=== PATIENT | female | born 1970 | race Caucasian/White ===

== ENCOUNTER 2016-03-23 18:57 | Emergency (ER) | payer OTHER ==
[2016-03-23 19:03] VITALS: BP 129/81; PULSE 83; TEMP 98.7; BMI 29.2
--- NOTE | 2016-03-23 19:41 | PDOC ---
History of Present Illness - General Chief Complaint: Cold Symptoms Stated Complaint: ASTHMA Time Seen by Provider: 03/23/16 19:35 History Source: Patient Exam Limitations: No Limitations - History of Present Illness Initial Comments: 03/23/16 19:58 Patient complaints of cough persistent after episode of influenza where she was treated 2 weeks ago. suffers from intermittent asthma that is mild however since this illness has persistent coughing with some phlegm production. ran out of her inhaler and was concerned her asthma was getting worse. Denies fever, denies any runny nose earache or sore throat pain. has some intermittent phlegm production that is clear to white. Timing/Duration: reports: changing over time, getting worse Severity: reports: moderate Associated Symptoms: reports: denies symptoms Past History - Travel Traveled outside of the country in the last 30 days: No Close contact w/someone who was outside of country & ill: No - Past Medical History Allergies/Adverse Reactions: Allergies Allergy/AdvReac Type Severity Reaction Status Date / Time No Known Drug Allergies Allergy Verified 03/23/16 19:01 Home Medications: Ambulatory Orders Omeprazole [Prilosec] 40 mg PO PRN 05/18/15 Albuterol Sulfate Inhaler - [Ventolin HFA Inhaler -] 1 - 2 inh PO Q4H PRN #1 inhaler 12/04/15 Ibuprofen [Motrin -] 600 mg PO QID PRN #28 tablet 12/04/15 Albuterol Sulfate [Proventil HFA Inhaler -] 1 - 2 inh PO QID #1 inhaler Prednisone [Deltasone -] 20 mg PO BID #8 tablet 03/23/16 Anemia: No Asthma: Yes Cancer: No Cardiac Disorders: No CVA: No COPD: No CHF: No Dementia: No Diabetes: No GI Disorders: Yes (gastritis) Disorders: No HTN: No Hypercholesterolemia: No Liver Disease: No Suicide Attempt (Hx): No Seizures: No Thyroid Disease: No - Surgical History Abdominal Surgery: Yes (HERNIA REPAIR) Appendectomy: No Cardiac Surgery: No Cholecystectomy: Yes Lung Surgery: No Neurologic Surgery: No Orthopedic Surgery: No - Reproductive History (#): 2 Para: 0 Cervical CA: No Dysfunctional Uterine Bleeding: No Ectopic : No Endometrial CA: No Polycystic Ovaries: No Spontaneous : 1 - Immunization History Immunization Up to Date: Yes - Psycho/Social/Smoking Cessation Hx Anxiety: No Suicidal Ideation: No Smoking Status: No Smoking History: Never smoked Have you smoked in the past 12 months: No Number of Cigarettes Smoked Daily: 0 Information on smoking cessation initiated: No Hx Alcohol Use: No Drug/Substance Use Hx: No Substance Use Type: None Hx Substance Use Treatment: No Review of Systems - Review of Systems Able to Perform ROS?: Yes Is the patient limited [place] proficient: Yes Constitutional: Yes: Symptoms Reported, See HPI, Chills, Fever, Malaise Respiratory: Yes: Symptoms reported, See HPI, Cough. No: Wheezing Musculoskeletal: Yes: Symptoms Reported All Other Systems: Reviewed and Negative *Physical Exam - Vital Signs Last Vital Signs Temp Pulse Resp BP Pulse Ox 98.7 F 83 20 129/81 100 03/23/16 19:01 03/23/16 19:01 03/23/16 19:01 03/23/16 19:01 03/23/16 19:01 - Physical Exam General Appearance: Yes: Nourished, Appropriately Dressed, Apparent Distress, Mild Distress HEENT: positive: EOMI, JUSTIN, TMs Normal, Pharynx Normal, Nasal Congestion Neck: positive: Supple. negative: Tender, Lymphadenopathy (R), Lymphadenopathy (L) Respiratory/Chest: positive: Lungs Clear, Normal Breath Sounds (tight inspiratory and expiratory breath sounds, but aeration throughout.) Gastrointestinal/Abdominal: positive: Normal Bowel Sounds, Soft. 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 Patient states is ready for discharge, will prescribe additional Proventil pump and 40 mg 4 days. *DC/Admit/Observation/Transfer Diagnosis at time of Disposition: Hyperactive airway disease Qualifiers: Asthma severity: mild intermittent Asthma complication type: with acute exacerbation Qualified Code(s): J45.21 - Mild intermittent asthma with (acute) exacerbation - Discharge Dispostion Disposition: HOME Condition at time of disposition: Stable Admit: No - Prescriptions Prescriptions: Prednisone [Deltasone -] 20 mg PO BID #8 tablet Albuterol Sulfate [Proventil HFA Inhaler -] 1 - 2 inh PO QID #1 inhaler - Referrals Referrals: Alexey Botello MD [Primary Care Provider] - - Patient Instructions Printed Discharge Instructions: DI for Viral Upper Respiratory Infection -- Adult Additional Instructions: Rest, drink lots of fluids: Teas, water, soups, Pedialyte Saltwater gargles Steamy showers/seem to face break up mucus Avoid contact with others until fevers and cough resolved Lots of handwashing and good hygiene Continue [id number] medications for symptomatic relief Tylenol or Motrin for fever and pain Continue albuterol inhalers 4 times a day for the next 3 days then as needed Sleep prednisone course 40 mg daily for the additional 4 more days Followup with private physician in one to 2 days Return to emergency department for worsened symptoms, fevers, dehydration - Post Discharge Activity Work/School Note: Back to Work
[2016-03-23] MEDS ORDERED: predniSONE 20 MG TABLET (UD) ONE (19:48)
[2016-03-23] MEDS ORDERED: ALBUTEROL SO4 2.5/IPRATROPIUM 0.5 INH SOL 3 ML VIAL.NEB. NEB ONE (19:55)
[2016-03-23] MEDS ORDERED: predniSONE 20 MG TABLET (UD) PO ONE (19:55)
== END 2016-03-23 20:24 | disposition home or self-care (01) ==
LOC: JERFT 18:57
PROC: 3E0F7GC Introduction of Other Therapeutic Substance into Respiratory Tract, Via Natural or Artificial Opening (ICD-10-PCS; principal; 2016-03-23)
DX: J45.21 Mild intermittent asthma with (acute) exacerbation (principal)
CPT/HCPCS: 99281-25

== ENCOUNTER 2016-08-01 17:46 | Emergency (ER) | payer OTHER ==
[2016-08-01 17:57] VITALS: BP 115/73; PULSE 62; TEMP 98.3; BMI 28.8
[2016-08-01] MEDS ORDERED: DEXAMETHASONE LIQUID 0.5 MG/5 ML 240 ML BULK BOTTLE PO ONE (19:00)
[2016-08-01] MEDS ORDERED: ALBUTEROL SO4 0.083% IH SOL 2.5 MG/3 ML VIAL.NEB. NEB ONE (19:01)
--- NOTE | 2016-08-01 19:06 | PDOC ---
History of Present Illness - General History Source: Patient Exam Limitations: No Limitations - History of Present Illness Initial Comments: 08/01/16 19:03 Patient is a 45-year-old female, history of asthma, gastritis. Presents emergency department for coughing requesting chest x-ray. Seen by Dr. Botello 2 weeks ago, was given a prescription for chest x-ray however states she was too busy. Now with wheezing, increased cough, "generalized aches and pains". Afebrile. [address] Botello changed from albuterol to Flovent and patient reports it's not helping her. Allergies: No known allergies Medications: Flovent Family History: Non-contributory Social History: Denies smoking, alcohol use, or IVDU Review of Systems GENERAL/CONSTITUTIONAL: No fever or chills. No weakness. No weight change. HEAD, EYES, EARS, NOSE AND THROAT: No change in vision. No ear pain or discharge. No sore throat. CARDIOVASCULAR: No chest pain or shortness of breath. RESPIRATORY: Cough and wheezing no hemoptysis. GASTROINTESTINAL: No nausea, vomiting, diarrhea or constipation. No rectal bleeding. GENITOURINARY: No dysuria, frequency, or change in urination. MUSCULOSKELETAL: No joint or muscle swelling or pain. No neck or back pain. SKIN AND BREASTS: No rash or easy bruising. NEUROLOGIC: No headache, vertigo, loss of consciousness, or loss of sensation. PSYCHIATRIC: No depression or anxiety. ENDOCRINE: No increased thirst. No abnormal weight change. HEMATOLOGIC/LYMPHATIC: No anemia, easy bleeding, or history of blood clots. ALLERGIC/IMMUNOLOGIC: No hives or skin allergy. No latex allergy. Physical Exam: GENERAL: The patient is awake, alert, and fully oriented, in no acute distress. EYES: Pupils equal, round and reactive to light, extraocular movements intact, sclera anicteric, conjunctiva clear. ENT: Ears normal, nares patent, oropharynx clear without exudates. Moist mucous membranes. No uvula deviation NECK: Normal range of motion, supple without lymphadenopathy, JVD, or masses. LUNGS: Breath sounds equal, clear to auscultation bilaterally. No wheezes, and no crackles. Patient is breathing comfortably in no acute distress. HEART: Regular rate and rhythm, normal S1 and S2 without murmur, rub or gallop. ABDOMEN: Soft, nontender, normoactive bowel sounds. No guarding, no rebound. No masses. No bruising or abrasions MUSCULOSKELETAL: Normal range of motion, no edema. No clubbing or cyanosis. No cords, erythema, or tenderness. No CVA Tenderness with fist palpation. SKIN: Warm, Dry, normal turgor, no rashes or lesions noted. 08/01/16 19:06 <Madhavi Ribeiro - Last Filed: 08/02/16 13:35> <Lou Camilo - Last Filed: 08/02/16 19:21> - General Chief Complaint: Asthma Stated Complaint: ASTHMA Time Seen by Provider: 08/01/16 18:33 Past History - Past Medical History Anemia: No Asthma: Yes Cancer: No Cardiac Disorders: No CVA: No COPD: No CHF: No Dementia: No Diabetes: No GI Disorders: Yes (gastritis) Disorders: No HTN: No Hypercholesterolemia: No Liver Disease: No Suicide Attempt (Hx): No Seizures: No Thyroid Disease: No - Surgical History Abdominal Surgery: Yes (HERNIA REPAIR) Appendectomy: No Cardiac Surgery: No Cholecystectomy: Yes Lung Surgery: No Neurologic Surgery: No Orthopedic Surgery: No - Reproductive History (#): 2 Para: 0 Cervical CA: No Dysfunctional Uterine Bleeding: No Ectopic : No Endometrial CA: No Polycystic Ovaries: No Spontaneous : 1 - Immunization History Immunization Up to Date: Yes - Psycho/Social/Smoking Cessation Hx Anxiety: No Suicidal Ideation: No Smoking Status: No Smoking History: Never smoked Have you smoked in the past 12 months: No Number of Cigarettes Smoked Daily: 0 Information on smoking cessation initiated: No Hx Alcohol Use: No Drug/Substance Use Hx: No Substance Use Type: None Hx Substance Use Treatment: No <Madhavi Ribeiro - Last Filed: 08/02/16 13:35> <Lou Camilo - Last Filed: 08/02/16 19:21> - Past Medical History Allergies/Adverse Reactions: Allergies Allergy/AdvReac Type Severity Reaction Status Date / Time No Known Drug Allergies Allergy Verified 08/01/16 17:54 Home Medications: Ambulatory Orders Omeprazole [Prilosec] 40 mg PO PRN 05/18/15 Albuterol Sulfate Inhaler - [Ventolin HFA Inhaler -] 1 - 2 inh PO Q4H PRN #1 inhaler 12/04/15 Ibuprofen [Motrin -] 600 mg PO QID PRN #28 tablet 12/04/15 Albuterol Sulfate [Proventil HFA Inhaler -] 1 - 2 inh PO QID #1 inhaler Prednisone [Deltasone -] 20 mg PO BID #8 tablet 03/23/16 Montelukast Na [Singulair -] 10 mg PO HS #30 tablet 08/01/16 *Physical Exam - Vital Signs Last Vital Signs Temp Pulse Resp BP Pulse Ox 98.3 F 62 18 115/73 100 08/01/16 17:54 08/01/16 17:54 08/01/16 17:54 08/01/16 17:54 08/01/16 17:54 <Madhavi Ribeiro - Last Filed: 08/02/16 13:35> - Vital Signs Last Vital Signs Temp Pulse Resp BP Pulse Ox 98.3 F 62 18 115/73 100 08/01/16 17:54 08/01/16 17:54 08/01/16 17:54 08/01/16 17:54 08/01/16 17:54 <Lou Camilo - Last Filed: 08/02/16 19:21> ED Treatment Course - ADDITIONAL ORDERS Additional order review: Laboratory Results 08/01/16 19:44 Urine HCG, Qual Negative - Medications Given in the ED: ED Medications Discontinued Medications Generic Name Dose Route Start Last Admin Trade Name Freq PRN Reason Stop Dose Admin Albuterol Sulfate 1 amp 08/01/16 19:01 08/01/16 19:03 Ventolin 0.083% Nebulizer Soln - NEB 08/01/16 19:02 1 amp ONCE ONE Administration Dexamethasone 10 mg 08/01/16 19:00 08/01/16 19:15 Decadron Liquid - PO 08/01/16 19:01 10 mg ONCE ONE Administration <Lou Camilo - Last Filed: 08/02/16 19:21> Medical Decision Making - Medical Decision Making 08/01/16 19:11 A/P: Patient here with asthma exacerbation, reactive airway. Combivent treatment given, Decadron 10 Reassessed and reading comfortably. Patient presented with prescription from Dr. Botello for chest x-ray PA lateral will perform urine for then perform x-ray. She has her period and is refusing to give urine specimen. Patient signed waver. 08/01/16 20:00 I am signing this patient out to my colleague: OVIDIO Camilo In brief, this patient is being seen in the ED for a chief complaint of: Asthma exacerbation, coughing I have completed the initial assessment interview note and have ordered: Albuterol, Combivent, Decadron, chest x-ray I have reviewed the following results: All pending Pending results are: Chest x-ray pending Plan for disposition is as follows: Pending 08/02/16 13:36 <Madhavi Ribeiro - Last Filed: 08/02/16 13:35> - Medical Decision Making 08/02/16 19:20 Negative chest x-ray, patient to be d/c home. <Lou Camilo - Last Filed: 08/02/16 19:21> *DC/Admit/Observation/Transfer - Discharge Dispostion Admit: No <Mdahavi Ribeiro - Last Filed: 08/02/16 13:35> <Lou Camilo - Last Filed: 08/02/16 19:21> Diagnosis at time of Disposition: Asthma attack - Discharge Dispostion Disposition: HOME Condition at time of disposition: Good - Prescriptions Prescriptions: Montelukast Na [Singulair -] 10 mg PO HS #30 tablet - Referrals Referrals: Alexey Botello MD [Primary Care Provider] - - Patient Instructions Printed Discharge Instructions: Asthma -- Adult Additional Instructions: Please follow-up with Dr. Botello Continue albuterol as previously prescribed Please start to take Singulair 1 tablet prior to going to sleep Any chest pain, shortness of breath, wheezing, or other concerns return to ER Cool air humidifier while asleep
[2016-08-01] MEDS ORDERED: DEXAMETHASONE SOD PHOSPHATE 10 MG/1 ML VIAL ONE (19:09)
== END 2016-08-01 20:30 | disposition home or self-care (01) ==
LOC: JERFT 17:46
PROC: 3E0F7GC Introduction of Other Therapeutic Substance into Respiratory Tract, Via Natural or Artificial Opening (ICD-10-PCS; principal; 2016-08-01)
DX: J45.901 Unspecified asthma with (acute) exacerbation (principal)
CPT/HCPCS: 71020-TC; 84703; 94640; 99281-25

== ENCOUNTER 2016-10-18 15:31 | Emergency (ER) | payer OTHER ==
[2016-10-18 16:05] VITALS: BP 122/75; PULSE 79; TEMP 98.3; BMI 30.7
[2016-10-18] MEDS ORDERED: IBUPROFEN 600 MG TABLET (FP) PO ONE ×2 (17:00→17:01)
--- NOTE | 2016-10-18 17:06 | PDOC ---
History of Present Illness - General Chief Complaint: Injury Stated Complaint: FALL/ SWOLLEN RT FOOT Time Seen by Provider: 10/18/16 16:10 History Source: Patient Exam Limitations: No Limitations - History of Present Illness Initial Comments: 10/18/16 17:00 CHIEF COMPLAINT: Right ankle injury. HISTORY OF PRESENT ILLNESS: Patient is an 45-year-old female history of asthma reports getting out of the car and twisted her right ankle now with right lateral ankle pain. No deformity, no edema, no erythema or bruising. Patient reports hearing a pop when she fell. Patient is also requesting to be evaluated for wheezing states her asthma has been acting up and she was wheezing prior to arrival, none upon arrival. Patient denies any other injuries. Occurred: reports: this afternoon Lower Ext. Injury Location - Specific Injury Location Ankle: right pain Extremity Pain Location - Extremity Pain Location Extremity Pain Locations: right: ankle Past History - Past Medical History Allergies/Adverse Reactions: Allergies Allergy/AdvReac Type Severity Reaction Status Date / Time No Known Drug Allergies Allergy Verified 10/18/16 16:05 Home Medications: Ambulatory Orders Loratadine [Claritin] 10 mg PO DAILY #30 tablet 10/18/16 Oxycodone HCl/Acetaminophen [Percocet 5-325 mg Tablet] 1 - 2 tab PO Q4H PRN #24 tablet MDD 10 10/18/16 Anemia: No Asthma: Yes Cancer: No Cardiac Disorders: No CVA: No COPD: No CHF: No Dementia: No Diabetes: No GI Disorders: Yes (gastritis) Disorders: No HTN: No Hypercholesterolemia: No Liver Disease: No Suicide Attempt (Hx): No Seizures: No Thyroid Disease: No - Surgical History Abdominal Surgery: Yes (HERNIA REPAIR) Appendectomy: No Cardiac Surgery: No Cholecystectomy: Yes Lung Surgery: No Neurologic Surgery: No Orthopedic Surgery: No - Reproductive History (#): 2 Para: 0 Cervical CA: No Dysfunctional Uterine Bleeding: No Ectopic : No Endometrial CA: No Polycystic Ovaries: No Spontaneous : 1 - Immunization History Immunization Up to Date: Yes - Psycho/Social/Smoking Cessation Hx Anxiety: No Suicidal Ideation: No Smoking Status: No Smoking History: Never smoked Have you smoked in the past 12 months: No Number of Cigarettes Smoked Daily: 0 Hx Alcohol Use: No Drug/Substance Use Hx: No Substance Use Type: None Hx Substance Use Treatment: No Review of Systems - Review of Systems Constitutional: No: Symptoms Reported HEENTM: No: Symptoms Reported Respiratory: No: Symptoms reported Cardiac (ROS): No: Symptoms Reported ABD/GI: No: Symptoms Reported : No: Symptoms Reported Musculoskeletal: Yes: Symptoms Reported, Joint Pain. No: Joint Swelling Integumentary: No: Bruising, Erythema Neurological: No: Symptoms reported, Paresthesia, Tingling, Tremors Hematologic/Lymphatic: No: Symptoms Reported All Other Systems: Reviewed and Negative *Physical Exam - Vital Signs Last Vital Signs Temp Pulse Resp BP Pulse Ox 98.3 F 79 20 122/75 99 10/18/16 16:03 10/18/16 16:03 10/18/16 16:03 10/18/16 16:03 10/18/16 16:03 - Physical Exam General Appearance: Yes: Appropriately Dressed. No: Apparent Distress Neck: negative: Tender lateral, Tender midline Respiratory/Chest: positive: Lungs Clear, Normal Breath Sounds. negative: Respiratory Distress, Labored Respiration, Rapid RR, Decreased Breath Sounds, Crackles, Rales, Rhonchi, Stridor, Wheezing, Hyperresonant, Dullness Cardiovascular: positive: Regular Rhythm, Regular Rate Musculoskeletal: positive: Decreased Range of Motion (right ankle, no deformity) Extremity: negative: Normal Range of Motion, Delayed Capillary Refill, Swelling , Erythema, Inflammation Integumentary: positive: Normal Color, Dry. negative: Erythema, Swelling, Ecchymosis, Bruising Neurologic: positive: Alert, Normal Mood/Affect ED Treatment Course - ADDITIONAL ORDERS Additional order review: Laboratory Results 10/18/16 16:30 Urine HCG, Qual Negative - RADIOLOGY Radiology Studies Ordered: Category Date Time Status ANKLE & FOOT-RIGHT* [RAD] Stat Radiology 10/18/16 16:19 Ordered Medical Decision Making - Medical Decision Making 10/18/16 17:08 A/P: Patient here for evaluation status post inversion injury to right ankle, sent to x-ray to rule out acute fracture also requesting to be evaluated for asthma, lungs are clear and assessment. 10/18/16 17:09 10/18/16 18:02 X-ray demonstrates Carter fracture, Mohamud wrap and surgical shoe placed on nonweightbearing strict until follow-up with orthopedics crutches given. I will discharge patient on anti-inflammatories. I discussed the physical exam findings, ancillary test results and final diagnoses with the patient. I answered all of the patient's questions. The patient was satisfied with the care received and felt comfortable with the discharge plan and treatment plan. The patient will call to arrange follow-up and will return to the Emergency Department with any new, persistent or worsening symptoms. 10/18/16 18:35 *DC/Admit/Observation/Transfer Diagnosis at time of Disposition: Fracture of fifth metatarsal bone Qualifiers: Encounter type: initial encounter Fracture type: closed Fracture alignment: nondisplaced Laterality: right Qualified Code(s): S92.354A - Nondisplaced fracture of fifth metatarsal bone, right foot, initial encounter for closed fracture - Discharge Dispostion Disposition: HOME Condition at time of disposition: Good Admit: No - Prescriptions Prescriptions: Loratadine [Claritin] 10 mg PO DAILY #30 tablet Oxycodone HCl/Acetaminophen [Percocet 5-325 mg Tablet] 1 - 2 tab PO Q4H PRN #24 tablet MDD 10 PRN Reason: Pain - Referrals Referrals: Len Montana MD [Staff Physician] - Alexey Botello MD [Primary Care Provider] - Jose Luevano MD [Staff Physician] - (ENT) - Patient Instructions Printed Discharge Instructions: DI for Foot Fracture Additional Instructions: 1. Please return to the emergency department with any redness, swelling, increased pain, or any other concerns. 2. Keep splint on. 3. Please follow up in the office of Dr. Montana within a week 4. No weightbearing, Strict 5. Ice and elevate when at rest. 6. Motrin for mild pain - Post Discharge Activity Work/School Note: Back to Work
== END 2016-10-18 19:02 | disposition home or self-care (01) ==
LOC: JERFT 15:31
DX: S92.354A Nondisplaced fracture of fifth metatarsal bone, right foot, initial encounter for closed fracture (principal); V48.4XXA Person boarding or alighting a car injured in noncollision transport accident, initial encounter; Y92.488 Other paved roadways as the place of occurrence of the external cause; Y93.89 Activity, other specified; Y99.8 Other external cause status
CPT/HCPCS: 73610-TC-RT; 73630-TC-RT; 84703; 99282-25

== ENCOUNTER 2017-06-16 14:06 | Emergency (ER) | payer SELFPAY ==
[2017-06-16 14:15] VITALS: BP 119/82; PULSE 70; TEMP 98.5; BMI 30.5
--- NOTE | 2017-06-16 14:28 | PDOC ---
History of Present Illness - General Chief Complaint: Pain Stated Complaint: SHOULDER PAIN Time Seen by Provider: 06/16/17 14:19 - History of Present Illness Initial Comments: 46-year-old female presents for evaluation of left shoulder pain. She had an arthroscopy about a month or so ago. Since that time she's been very stiff. She is unsure what was done during the arthroscopy. She may have had a subacromial decompression versus a rotator cuff repair. She thinks she may have had a repair. No other associated symptoms just left shoulder stiffness 06/16/17 14:23 Past History - Past Medical History Allergies/Adverse Reactions: Allergies Allergy/AdvReac Type Severity Reaction Status Date / Time No Known Drug Allergies Allergy Verified 06/16/17 14:12 Home Medications: Ambulatory Orders Albuterol 0.083% Nebulizer Gwen [Ventolin 0.083%] 1 neb NEB Q4H 06/16/17 Ibuprofen [Motrin -] 600 mg PO TID #30 tablet 06/16/17 Ibuprofen [Motrin -] 800 mg PO TID 06/16/17 Anemia: No Asthma: Yes Cancer: No Cardiac Disorders: No CVA: No COPD: No CHF: No DVT: No Dementia: No Diabetes: No GI Disorders: Yes (gastritis) Disorders: No HTN: No Hypercholesterolemia: No Liver Disease: No Seizures: No Thyroid Disease: No - Surgical History Abdominal Surgery: Yes (HERNIA REPAIR) Appendectomy: No Cardiac Surgery: No Cholecystectomy: Yes Lung Surgery: No Neurologic Surgery: No Orthopedic Surgery: No - Reproductive History (#): 2 Para: 0 Cervical CA: No Dysfunctional Uterine Bleeding: No Ectopic : No Endometrial CA: No Polycystic Ovaries: No Spontaneous : 1 - Immunization History Immunization Up to Date: Yes - Suicide/Smoking/Psychosocial Hx Smoking Status: No Smoking History: Never smoked Have you smoked in the past 12 months: No Number of Cigarettes Smoked Daily: 0 Hx Alcohol Use: No Drug/Substance Use Hx: No Substance Use Type: None Hx Substance Use Treatment: No Review of Systems - Review of Systems All Other Systems: Reviewed and Negative *Physical Exam - Vital Signs Last Vital Signs Temp Pulse Resp BP Pulse Ox 98.5 F 70 18 119/82 100 06/16/17 14:12 06/16/17 14:12 06/16/17 14:12 06/16/17 14:12 06/16/17 14:12 - Physical Exam Comments: Left shoulder skin color and temperature are normal. There is no swelling. The arthroscopic portals are well-healed. The upper extremity compartments are soft and nontender her range of motion is very stiff. Passive full flexion to 70 internal rotation to chest wall external rotation to about 20 with stiffness and pain. She has no gross sensorimotor deficits. She is neurovascularly intact. 06/16/17 14:24 Medical Decision Making - Medical Decision Making Is most likely adhesive capsulitis after rotator cuff repair. She said Motrin helps her with her pain. I've prescribed her 600 3 times a day for the next 10 days until orthopedic surgery follow-up. Return to the emergency room if symptoms worsen or increased prior to follow up in the meantime her physical therapy should be guided by her operating surgeon again I'm unsure as to what procedure she had done 06/16/17 14:24 *DC/Admit/Observation/Transfer Diagnosis at time of Disposition: Adhesive capsulitis - Discharge Dispostion Disposition: HOME Condition at time of disposition: Stable Decision to Admit order: No - Referrals Referrals: Fantasma Castrejon MD [Non Staff, Medical] - - Patient Instructions Printed Discharge Instructions: DI for Frozen Shoulder Additional Instructions: It is important she follow up with the operating orthopedic surgeon. He may have had a rotator cuff repair or just a decompression and postoperative restrictions or different for both surgeries so it's important that he guides her physical therapy. I believe he have a frozen shoulder aphthae or arthroscopy. I've given U Motrin for pain. Return to the emergency room if symptoms worsen or go unresolved prior to follow up with orthopedic surgery - Post Discharge Activity
== END 2017-06-16 14:40 | disposition home or self-care (01) ==
LOC: JERFT 14:06
DX: M75.02 Adhesive capsulitis of left shoulder (principal); J45.909 Unspecified asthma, uncomplicated
CPT/HCPCS: 99281-25

== ENCOUNTER 2018-04-10 11:22 | Emergency (ER) | payer OTHER ==
[2018-04-10 11:34] VITALS: BP 97/67; PULSE 69; TEMP 98.1; BMI 32.9
--- NOTE | 2018-04-10 12:16 | PDOC ---
History of Present Illness - General Chief Complaint: Pain Stated Complaint: RIGHT ARM PAIN Time Seen by Provider: 04/10/18 11:52 History Source: Patient Exam Limitations: No Limitations - History of Present Illness Initial Comments: 04/10/18 12:20 Here with complaints of right elbow pain, atraumatic, but states lateral aspect of the elbow has been painful and worsening over the past few months. Denies fever, history of trauma, no strenuous activity or exercise changes recently. Occurred: reports: other (2-3 months of pain = ) Severity: reports: moderate Pain Location: reports: upper extremity (right elbow) Modifying Factors: improves with: None Loss of Consciousness: no loss of consciousness Associated Symptoms (Fall): denies symptoms Past History - Travel Traveled outside of the country in the last 30 days: No Close contact w/someone who was outside of country & ill: No - Past Medical History Allergies/Adverse Reactions: Allergies Allergy/AdvReac Type Severity Reaction Status Date / Time No Known Drug Allergies Allergy Verified 04/10/18 12:01 Home Medications: Ambulatory Orders Naproxen [Naprosyn -] 500 mg PO BID #30 tablet 04/10/18 Anemia: No Asthma: Yes Cancer: No Cardiac Disorders: No CVA: No COPD: No CHF: No DVT: No Dementia: No Diabetes: No GI Disorders: Yes (gastritis) Disorders: No HTN: No Hypercholesterolemia: No Liver Disease: No Seizures: No Thyroid Disease: No - Surgical History Abdominal Surgery: Yes (HERNIA REPAIR) Appendectomy: No Cardiac Surgery: No Cholecystectomy: Yes Lung Surgery: No Neurologic Surgery: No Orthopedic Surgery: No - Reproductive History (#): 2 Para: 0 Cervical CA: No Dysfunctional Uterine Bleeding: No Ectopic : No Endometrial CA: No Polycystic Ovaries: No Spontaneous : 1 - Immunization History Immunization Up to Date: Yes - Suicide/Smoking/Psychosocial Hx Smoking Status: No Smoking History: Never smoked Have you smoked in the past 12 months: No Number of Cigarettes Smoked Daily: 0 Hx Alcohol Use: No Drug/Substance Use Hx: No Substance Use Type: None Hx Substance Use Treatment: No Trauma Specific PMHX - Complaint Specific PMHX Back Injury: No Neck Injury: No Review of Systems - Review of Systems Able to Perform ROS?: Yes Is the patient limited Portuguese proficient: Yes Constitutional: Yes: Symptoms Reported, See HPI. No: Chills, Fever, Malaise HEENTM: No: Symptoms Reported Respiratory: No: Symptoms reported Musculoskeletal: Yes: Symptoms Reported, See HPI, Joint Pain. No: Joint Swelling Integumentary: Yes: Symptoms Reported, See HPI. No: Bruising, Erythema All Other Systems: Reviewed and Negative *Physical Exam - Vital Signs Last Vital Signs Temp Pulse Resp BP Pulse Ox 98.1 F 69 16 97/67 100 04/10/18 11:32 04/10/18 11:32 04/10/18 11:32 04/10/18 11:32 04/10/18 11:32 - Physical Exam General Appearance: Yes: Nourished, Appropriately Dressed, Apparent Distress, Mild Distress (r ) HEENT: positive: JUSTIN, Normal ENT Inspection, TMs Normal, Pharynx Normal Neck: positive: Supple. negative: Tender Respiratory/Chest: positive: Lungs Clear, Normal Breath Sounds Gastrointestinal/Abdominal: positive: Normal Bowel Sounds, Soft Musculoskeletal: positive: Normal Inspection. negative: CVA Tenderness, Vertebral Tenderness Extremity: positive: Normal Capillary Refill, Normal Inspection, Tender (at lateral epicondyles with reproduce tenderness to supination and pronation, pain radiates down to hands and ulnar aspect fingers 34 and 5 with movement. All consistent with epicondylitis). 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 II-XII NML intact Moderate Sedation - Procedure Monitoring Vital Signs: Procedure Monitoring Vital Signs Temperature 98.1 F 04/10/18 11:32 Pulse Rate 69 04/10/18 11:32 Respiratory Rate 16 04/10/18 11:32 Blood Pressure 97/67 04/10/18 11:32 O2 Sat by Pulse Oximetry (%) 100 04/10/18 11:32 Progress Note - Progress Note Progress Note: Epicondylitis, will treat with NSAIDs and given 1 dose of Decadron *DC/Admit/Observation/Transfer Diagnosis at time of Disposition: Epicondylitis, lateral Qualifiers: Laterality: right Qualified Code(s): M77.11 - Lateral epicondylitis, right elbow - Discharge Dispostion Disposition: HOME Condition at time of disposition: Stable Decision to Admit order: No - Prescriptions Prescriptions: Naproxen [Naprosyn -] 500 mg PO BID #30 tablet - Referrals Referrals: Alexey Botello MD [Primary Care Provider] - - Patient Instructions Printed Discharge Instructions: DI for Lateral Epicondylitis (Tennis Elbow) Additional Instructions: Rest, ice to area on and off for 15 minutes 4-6 times a day Avoid heavy lifting or exercise until pain and swelling is resolved or until further directed Keep area highly elevated to reduce swelling Use splints/Mohamud wrap as directed Followup with orthopedist in one to 2 days if not improving, if significantly improved may wait one week for followup with orthopedist May use ibuprofen every 6 hours as needed for pain - Post Discharge Activity Forms/Work/School Notes: Back to Work
[2018-04-10] MEDS ORDERED: DEXAMETHASONE LIQUID 0.5 MG/5 ML 240 ML BULK BOTTLE PO ONE (12:29)
[2018-04-10] MEDS ORDERED: DEXAMETHASONE SOD PHOSPHATE 10 MG/1 ML VIAL ONE ×2 (12:45→12:56)
== END 2018-04-10 12:59 | disposition home or self-care (01) ==
LOC: SUPCPDRO 11:22 → JERFT 11:22
DX: M77.11 Lateral epicondylitis, right elbow (principal); J45.909 Unspecified asthma, uncomplicated; K29.70 Gastritis, unspecified, without bleeding
CPT/HCPCS: 84703; 99281-25

== ENCOUNTER 2018-09-17 19:41 | Emergency (ER) | payer OTHER | END 2018-09-17 22:29 | disposition left against medical advice (07) | LOC: JER 19:41 ==